=== PATIENT | female | born 1965 | race Caucasian/White ===

== ENCOUNTER → 2016-10-16 | Outpatient (CLI) | payer BC | LOC: MC.RAD 13:53 | DX: Z12.31 Encounter for screening mammogram for malignant neoplasm of breast (principal); N63 Unspecified lump in breast ==

== ENCOUNTER → 2017-11-11 | Outpatient (CLI) | payer BC | LOC: MC.RAD 08:00 | DX: Z12.31 Encounter for screening mammogram for malignant neoplasm of breast (principal) ==

== ENCOUNTER → 2018-10-29 | Outpatient (CLI) | payer OTHER | LOC: COL.RAD 08:09 | DX: E04.2 Nontoxic multinodular goiter (principal) ==

== ENCOUNTER → 2018-11-03 | Outpatient (CLI) | payer OTHER ==
[~2018-11-03] VITALS: Ht 157.5 cm; Wt 59.3 kg
[~2018-11-03] MED LIST: ALLEGRA 180MG180 MG PO
[2018-11-03 08:28] VITALS: BP 138/80; PULSE 53
[2018-11-03 09:44] VITALS: BP 144/98; PULSE 75
--- NOTE | 2018-11-03 10:01 | NUR ---
PT TAKEN TO POV AMBULATORY. DRIVING
== END ==
LOC: COL.RAD 08:15
DX: E04.1 Nontoxic single thyroid nodule (principal)

== ENCOUNTER → 2018-11-30 | Outpatient (CLI) | payer OTHER | LOC: MC.RAD 07:45 | DX: Z12.31 Encounter for screening mammogram for malignant neoplasm of breast (principal) ==

== ENCOUNTER → 2020-01-04 | Outpatient (CLI) | payer OTHER | LOC: MC.RAD 12-02 10:45 | DX: Z12.31 Encounter for screening mammogram for malignant neoplasm of breast (principal) ==

== ENCOUNTER → 2021-01-10 | Outpatient (CLI) | payer OTHER | LOC: MC.RAD 14:24 | DX: Z12.31 Encounter for screening mammogram for malignant neoplasm of breast (principal) ==

== ENCOUNTER → 2022-02-11 | Outpatient (CLI) | payer OTHER | LOC: MC.RAD 09:45 | DX: Z12.31 Encounter for screening mammogram for malignant neoplasm of breast (principal) ==

== ENCOUNTER → 2024-02-22 | Outpatient (CLI) | payer OTHER | LOC: MC.RAD 11:15 | DX: Z12.31 Encounter for screening mammogram for malignant neoplasm of breast (principal) ==